=== PATIENT | male | born 1995 | race Caucasian/White ===

== ENCOUNTER 2021-10-18 21:44 | Inpatient (IN) | payer OTHER ==
[~2021-10-18] VITALS: Ht 170.2 cm; Wt 70.8 kg
--- NOTE | 2021-10-18 22:00 | NUR ---
PT BIBS FOR C/O R SHOUDLER DISLOCATION. PT A/OX4. TOLERATING R/A WELL WITH NO SOB. CONNECTED PT TO POX AND MONITOR.
--- NOTE | 2021-10-18 22:13 | NUR ---
Tae mosley in [facility] - 10/18/21 at 2225 by KASIA CONCRETE FOREMAN AT PT'S BEDSIDE
[2021-10-18] MEDS ORDERED: KETOROLAC TROMETHAMINE 15 MG/ML VIAL ONE (22:23)
--- NOTE | 2021-10-18 22:25 | NUR ---
[employer] SUPERVISOR AT PT'S BEDSIDE
[2021-10-18] MEDS ORDERED: KETOROLAC TROMETHAMINE INJ 30 MG/ML VIAL IV ONE (22:30)
--- NOTE | 2021-10-18 22:47 | NUR ---
LAC #20G S/L; PATENT AND INTACT
--- NOTE | 2021-10-18 23:12 | NUR ---
PT SIGNED CONSENT FOR CLOSED REDUCTION TO THE RIGHT SHOULDER UNDER MODERATE SEDATION; VERBALIZED UNDERSTANDING
[2021-10-18] MEDS ORDERED: PROPOFOL 20 ML IV ONE (23:22)
[2021-10-18] MEDS ORDERED: KETAMINE HCL (500MG/10ML) 50 MG/ML VIAL ONE (23:30)
--- NOTE | 2021-10-18 23:42 | NUR ---
DR. NATH, RT, RN, EMT AT PT'S BEDSIDE FOR CLOSED REDUCTION OF THE RIGHT SHOULDER UNDER MODERATE SEDATION 2332 - PROPROFOL 140MG IVP TOTAL ADMINISTERED VERBAL ORDERED PT STILL AWAKE. TOLERATING O2 2LPM VIA N/C WELL WITH NO SOB AT 100%. VSS 2337 - KETAMINE 140MG ADMINISTERED IVP TOTAL ADMINISTERES VERBAL ORDERED. 2338 - DR. NATH ATTEMPT TO DO PROCEDURE BUT UNSUCCESSFUL. 2342. PT AWAKE. VSS. TOLERATING R/A WELL WITH NO SOB.
--- NOTE | 2021-10-18 23:47 | NUR ---
dr vanegas on the phone w/ dr bonds , ortho
[2021-10-19] MEDS ORDERED: ONDANSETRON HCL/PF 4 MG/2 ML VIAL ONE (00:16)
--- NOTE | 2021-10-19 00:21 | NUR ---
COVID ANTIGEN SWAB COLLECTED AND SENT TO LAB
[2021-10-19] MEDS ORDERED: PROPOFOL 200 MG/20 ML VIAL IV ONE (00:30)
[2021-10-19] MEDS ORDERED: ONDANSETRON HCL/PF - ER 4 MG/2 ML VIAL IV ONE (00:30)
[2021-10-19] MEDS ORDERED: KETAMINE HCL(200MG/20ML) 10 MG/ML VIAL IV ONE (00:30)
--- NOTE | 2021-10-19 00:56 | NUR ---
PT TAKEN TO CT VIA PAT
--- NOTE | 2021-10-19 01:09 | NUR ---
PT RETURNED TO ER BED [address]
[2021-10-19] MEDS ORDERED: MORPHINE SULFATE INJ 2 MG/ML DISP.SYRIN IV PRN (01:30)
[2021-10-19] MEDS ORDERED: ONDANSETRON HCL/PF 4 MG/2 ML VIAL IVP PRN (01:30)
[2021-10-19] MEDS ORDERED: ACETAMINOPHEN 650 MG/SUPP.RECT RC PRN (01:30)
[2021-10-19] MEDS ORDERED: IV D5/0.45 NACL 1,000 ML IV PRN (01:30)
--- NOTE | 2021-10-19 01:40 | NUR ---
TELEPHONE MESSENGER AT PT'S BEDSIDE
[2021-10-19 02:01] LABS: BASOPHILS # (AUTO) 0.1 K/uL (0.0-0.2); BASOPHILS % (AUTO) 0.7 % (0.0-2.0); EOSINOPHILS % (AUTO) 0.6 % (0.0-6.0); HEMATOCRIT 39 % (39-51); HEMOGLOBIN 13.3 g/dL (13.5-17.5); LYMPHOCYTES # (AUTO) 1.1 K/uL (0.8-4.8); LYMPHOCYTES % (AUTO) 14.7 % (20.0-44.0); MEAN CORPUSCULAR HGB CONC 34 g/dl (31.0-36.0); MEAN CORPUSCULAR VOLUME 91 fL (80-96); MONOCYTES # (AUTO) 0.4 K/uL (0.1-1.30); MONOCYTES % (AUTO) 5.2 % (2.0-12.0); NEUTROPHILS # (AUTO) 5.7 K/uL (1.8-8.9); NEUTROPHILS % (AUTO) 78.8 % (43.0-81.0); PLATELET COUNT (AUTO) 154 K/uL (150-450); RED BLOOD CELL COUNT(AUTO) 4.26 MIL/uL (4.5-6.0); WHITE BLOOD COUNT (AUTO) 7.2 K/uL (4.3-11.0)
--- NOTE | 2021-10-19 02:05 | NUR ---
MRSA SWAB COLLECTED AND SENT TO LAB. PATIENT'S BELONGINGS LIST DONE.
[2021-10-19] MEDS ORDERED: [UNRECOGNIZED DRUG - CODE] IO (02:06)
[2021-10-19] MEDS ORDERED: TADA5TAB2 PO (02:07)
[2021-10-19 02:10] LABS: CALCIUM, SERUM 8.7 mg/dL (8.5-10.1); CREATININE 1.1 mg/dL (0.6-1.3); POTASSIUM 3.5 mmol/L (3.5-5.1)
--- NOTE | 2021-10-19 02:10 | NUR ---
REPORT GIVEN TO HEATHER Marcum RN FOR CORA.
--- NOTE | 2021-10-19 02:25 | NUR ---
PT TRANSFERRED TO 3W VIA ACLS PROTOCOL. VSS.
--- NOTE | 2021-10-19 02:27 | NUR ---
TRANSFERRED TO THIRD FLOOR IN STABKE CONDITION
[2021-10-19 03:11] VITALS: BP 129/84
--- NOTE | 2021-10-19 03:16 | NUR ---
MS ELECTRICAL ENGINEERING PROFESSOR NOTE PATIENT BROUGHT UP @0226 AM VIA [employer]. PATIENT IS A/OX4, AMBULATORY. NOT EXHIBITING S/S OF APPARENT DISTRESS ON ROOM AIR. DENIES PAIN AT THIS TIME. PATIENT L. AC #20G STARTED ON D5 / NS @75CC/HR. REFUSED TO KEEP THE SLING ON HIS L. ARM-- PER PATIENT IT'S UNCOMFORTABLE AND "I ONLY WORE IT FOR LIKE 10 MINUTES", PATIENT TEACHING DONE AND PATIENT ACKNOWLEDGED THE RISKS OF NOT KEEPING SLING ON. PATIENT HAS INTACT SKIN. BELONGINGS INVENTORIED AND SIGNED BY PATIENT. NEW ID BAND ON PATIENT. PER PATIENT HE IS UP-TO-DATE WITH HIS IMMUNIZATIONS. PATIENT WISHES TO BE FULL CODE. V/S FOLLOWS: BP-129/84, HR-63, T-97.7, RR-18, SATURATION 97% ON ROOM AIR. SAFETY IN PLACE-- RAILS PADDED, BED IN LOW AND LOCKED POSITION, PATIENT EDUCATED ABOUT THE USE OF CALL LIGHT. PATIENT MADE KNOWN ABOUT THE NPO STATUS AND ACKNOWLEDGES NOT TO HAVE ANYTHING BY MOUTH. WILL CONTINUE WITH PATIENT'S PLAN OF CARE.
--- NOTE | 2021-10-19 06:47 | NUR ---
MS RN CLOSING NOTE PATIENT IN BED, A/OX4. PER PATIENT HE'S JUST COMFORTABLE RIGHT NOW. NO S/S OF APPARENT DISTRESS ON ROOM AIR. DENIES PAIN. IV D5 1/2 NS RUNNING @75CC/HR. ALL NEEDS ATTENDED. PATIENT REMAINED NPO. SAFETY KEPT IN PLACE THE WHOLE SHIFT, SEIZURE PRECAUTION IN PLACE. WILL ENDORSE TO MORNING SHIFT RN FOR CONTINUITY OF CARE.
--- NOTE | 2021-10-19 07:20 | NUR ---
RN OPENING NOTE RECEIVED PATIENT RESTING IN BED. PATIENT IS A.O X4. PATIENT IS BREATHING EVENLY AND NONLABORED ON ROOM AIR. NO SIGNS OF DISTRESS OR SOB NOTED. DENIES PAIN AT THIS TIME. PATIENT HAS IV ACCESS ON LAC # 20 GAUGE PATENT AND INTACT RUNNING D5 1/2 NS @ 75 ML/HR. SAFETY MEASURES IN PLACE BED LOW LOCKED AND CALL LIGHT WITHIN REACH WILL CONTINUE TO MONITOR.
[2021-10-19 08:00] VITALS: BP 140/55
[2021-10-19 09:12] VITALS: BP 122/57
[2021-10-19] MEDS ORDERED: ANESTHESIA TRAY IN PYXIS 1 EA TRAY MC ONE (15:14)
[2021-10-19] MEDS ORDERED: FENTANYL PF 100MCG/2ML AMPUL ONE (16:09)
[2021-10-19] MEDS ORDERED: SUCCINYLCHOLINE CHLORIDE 20 MG/ML VIAL ONE (16:10)
[2021-10-19] MEDS ORDERED: MIDAZOLAM HCL 2 MG/2ML VIAL ONE (16:10)
[2021-10-19] MEDS ORDERED: FAMOTIDINE/PF INJ 20 MG/2 ML VIAL IV ONE (16:10)
[2021-10-19] MEDS ORDERED: BUPIVACAINE 0.25% 75 MG/30 ML VIAL ONE (16:33)
[2021-10-19 18:34] VITALS: BP 124/76
--- NOTE | 2021-10-19 19:12 | NUR ---
COMPUTER RECYCLING WORKER NOTE RECEIVED ORDER FOR DISCHARGE. PATIENT IS A/O X4 PATIENT IS BREATHING EVENLY AND NONLABORED ON ROOM AIR. NO SIGNS OF SOB OR DISTRESS NOTED. DENIES PAIN OR DISCOMFORT AT THIS TIME. PATIENT IS POST CLOSED REDUCTION OF RIGHT SHOULDER, PATIENT WAS GIVEN DISCHARGE INSTRUCTIONS BOTH VERBALLY AND IN WRITTEN FORM. PATIENT VERBALIZED UNDERSTANDING. IV ACCESS WAS REMOVED NO BLEEDING NOTED. ID BAND REMOVED. ALL BELONGINGS ACCOUNTED FOR BELONGINGS FORM SIGNED. PATIENT LEFT INS TABLE CONDITION VIA PRIVATE CAR.
== END 2021-10-19 19:15 | disposition home or self-care (01) | DRG 563 ==
LOC: ER 21:48 → MED 10-19 01:57
PROVIDERS: ADMIT Family Medicine; ATTEND Family Medicine
PROC: 0RSJXZZ Reposition Right Shoulder Joint, External Approach (ICD-10-PCS; principal; 2021-10-19)
DX: S43.014A Anterior dislocation of right humerus, initial encounter (principal); S42.291A Other displaced fracture of upper end of right humerus, initial encounter for closed fracture; X58.XXXA Exposure to other specified factors, initial encounter; Y92.39 Other specified sports and athletic area as the place of occurrence of the external cause; Z20.822 Contact with and (suspected) exposure to COVID-19; R56.9 Unspecified convulsions; Y93.9 Activity, unspecified; D50.9 Iron deficiency anemia, unspecified; R73.9 Hyperglycemia, unspecified; R91.1 Solitary pulmonary nodule; Z98.890 Other specified postprocedural states; M21.821 Other specified acquired deformities of right upper arm
CPT/HCPCS: 36415; 73030-TC; 73200-TC; 80048-TC; 85025-TC; 85610-TC; 87081-TC; A4217; C9803; G0378; J0330; J1885; J2250; J2270; J2405; J2704; J2765; J3010; J3490; J7030